=== PATIENT | male | born 1955 | race Caucasian/White ===

== ENCOUNTER → 2024-06-04 | Day surgery (SDC) | payer MEDICARE, OTHER ==
[~2024-06-04] MED LIST: LIDOCAINE 1% (10MG/ML) FOR IV START INTRADERMA PRN; LIDOCAINE 1% INJ 10MG/ML (20 ML MDV) ONE; PROPOFOL 10 MG/ML 20 ML VIAL IV ONE
[2024-06-04 10:25] VITALS: TEMP 97.8
[2024-06-04] MEDS: LACTATED RINGERS 1,000 ML IV SCH (10:38)
[2024-06-04] MEDS: IV FLUID CONTINUATION 1,000 ML IV ONE (10:38)
--- NOTE | 2024-06-04 11:08 | P.GSHP ---
History of Present Illness H&P Date: 06/04/24 Chief Complaint: Colon cancer screening 69-year-old male here for colonoscopy. Last colonoscopy 10 years ago. No bowel complaints. Family history of colon cancer in his brother. Past Medical History Past Medical History: No Reported History History of Any Multi-Drug Resistant Organisms: None Reported Additional Past Surgical History / Comment(s): colonoscopy,teeth extracted Past Anesthesia/Blood Transfusion Reactions: No Reported Reaction Smoking Status: Never smoker - Past Family History Brother(s) Family Medical History: Cancer Additional Family Medical History / Comment(s): colon cancer Medications and Allergies Home Medications Medication Instructions Recorded Confirmed Type No Known Home Medications 05/31/24 06/04/24 History Allergies Allergy/AdvReac Type Severity Reaction Status Date / Time No Known Allergies Allergy Verified 06/04/24 10:22 Surgical - Exam Vital Signs Temp Pulse Resp BP Pulse Ox 97.8 F 80 18 156/94 98 06/04/24 10:23 06/04/24 10:23 06/04/24 10:23 06/04/24 10:23 06/04/24 10:23 Physical exam: General: Well-developed, well-nourished HEENT: Normocephalic, sclerae nonicteric Abdomen: Nontender, nondistended Extremities: No edema Neuro: Alert and oriented Assessment and Plan (1) Colon cancer screening Narrative/Plan: Will proceed with colonoscopy at this time. Current Visit: Yes Status: Acute Code(s): Z12.11 - ENCOUNTER FOR SCREENING FOR MALIGNANT NEOPLASM OF COLON SNOMED Code(s): 867550597
--- NOTE | 2024-06-04 11:26 | P.PCN ---
Date of Procedure: 06/04/24 Procedure(s) Performed: PREOPERATIVE DIAGNOSIS: Screening with history of colon cancer POSTOPERATIVE DIAGNOSIS: Small rectal polyp, diverticulosis PROCEDURE: Colonoscopy with snare ANESTHESIA: MAC SURGEON: Kin Campo M.D. SPECIMENS: Rectal polyp ENDOSCOPIC PROCEDURE: The patient was placed on the endoscopy table in the left decubitus position. The Olympus colonoscope was inserted into the anus and passed under direct visualization to the base of the cecum. The appendiceal orifice was visualized. From that point the scope was slowly withdrawn inspecting all surfaces carefully. There were no neoplastic inflammatory or polypoid lesions throughout the cecum, ascending, transverse, descending, and sigmoid colon. In the rectum there was a small polyp that was removed using the cold snare technique. The remainder of the rectum was normal. There was mild scattered diverticulosis. Digital rectal examination was normal. The patient was taken to the recovery room in stable condition per anesthesia guidelines. RECOMMENDATIONS: Await biopsy results. Plan repeat colonoscopy 5 years given yazmin ellis's family history of colon cancer.
[2024-06-04 11:43] VITALS: BP 115/70; PULSE 71; RESP 14
== END ==
LOC: ORWHC2ENDO 09:47
PROVIDERS: ATTEND Surgery
DX: Z12.11 Encounter for screening for malignant neoplasm of colon (principal); K57.30 Diverticulosis of large intestine without perforation or abscess without bleeding; K62.1 Rectal polyp; F17.200 Nicotine dependence, unspecified, uncomplicated; Z80.0 Family history of malignant neoplasm of digestive organs; Z85.038 Personal history of other malignant neoplasm of large intestine
CPT/HCPCS: 88305; 45385; J2001; J2704